=== PATIENT | female | born 1980 | race Hispanic/Latino ===

== ENCOUNTER → 2017-08-11 | Outpatient (CLI) | payer OTHER ==
--- NOTE | 2017-08-11 11:27 | Diagnostic Imaging Report ---
PROCEDURE:ABDOMINAL ULTRASOUND COMPARISON:None. INDICATIONS: ABNORMAL RESULTS OF LIVER FUNCTION TEST TECHNIQUE: Transverse and longitudinal images of the upper abdomen were obtained. FINDINGS: Liver: Size: 17.6 cm in the right midclavicular line, mildly enlarged Appearance: Mildly increased echogenicity, smooth contour Mass: No focal masses Spleen: Size: 10.0 cm in length, normal Echogenicity: Normal Mass: No focal masses Gallbladder: Stones/Sludge: None Appearance: No wall thickening, or hydrops. An anechoic area posterior to the gallbladder represent trace volume pericholecystic fluid. Sonographic Lan's Sign: Negative Bile Ducts: Intrahepatic Ducts: No dilatation Extrahepatic Ducts: Common bile duct measures 0.8 cm, no dilatation Pancreas: Not visualized due to shadowing from overlying bowel gas. Right Kidney: Size: 12.8 cm Echogenicity: Normal Collecting System: No hydronephrosis Stone: None Cyst/Mass: None Left Kidney: Size: 12.2 cm Echogenicity: Normal Collecting System: No hydronephrosis Stone: None Cyst/Mass: None Vessels: Aorta: Visualized portions are normal Inferior Vena Cava: Visualized portions and normal Main Portal Vein: 1.0 cm, normal size with hepatopetal flow. Free Fluid: No ascites or pleural effusions IMPRESSION: Mild hepatomegaly and hepatic steatosis. Opal Alves M.D. Dictated by: Opal Alves M.D. on 08/11/2017 at 11:31 Electronically approved by: Opal Alves M.D. on 08/11/2017 at 11:31
--- NOTE | 2017-08-11 14:11 | Diagnostic Imaging Report ---
PROCEDURE:C-SPINE COMPLETE COMPARISON:None. INDICATIONS:CERVICALGIA FINDINGS: The lateral view is visualized from the skull base to C7. Mild straightening of the normal cervical lordosis is either related to muscle spasm or positioning. The vertebral bodies are well-aligned. There are no fractures, lytic or blastic lesions. No evidence of neuroforaminal narrowing. The disc-space heights are well-maintained. The C1/C2-odontoid interval is normal. The pre-vertebral soft tissues are normal. CONCLUSION: Mild straightening of the normal cervical lordosis is either related to muscle spasm or positioning. No acute osseous abnormality. Opal Alves M.D. Dictated by: Opal Alves M.D. on 08/11/2017 at 14:15 Electronically approved by: Opal Alves M.D. on 08/11/2017 at 14:15
--- NOTE | 2017-08-15 08:29 | Diagnostic Imaging Report ---
#[id number] - USBRECOMRT ULTRASOUND OF THE RIGHT BREAST : 08/11/2017 CLINICAL: FREQUENT DIFFUSE RT BREAST PAIN THAT SOMETIMES LASTS FOR DAYS. No prior exams were available for comparison. Color flow and real-time ultrasound were performed on the entire right breast with scanning in all four quadrants, retroareolar region and right axilla. There are prominent ductal pattern without evidence of a cystic or solid mass. IMPRESSION: BENIGN There is no sonographic evidence of malignancy. A 3 year screening mammogram is recommended. Arash Boudreaux Jr., D.O. cw/:08/11/2017 13:25:06 [employer] Bonder: CAR SYED, [facility] letter sent: Normal Exam Ultrasound BI-RADS: 2 Benign
== END | disposition home or self-care (01) ==
LOC: US 09:56
PROVIDERS: ATTEND Internal Medicine
DX: R94.5 Abnormal results of liver function studies (principal); D24.1 Benign neoplasm of right breast; M54.2 Cervicalgia; R16.0 Hepatomegaly, not elsewhere classified; K76.0 Fatty (change of) liver, not elsewhere classified
CPT/HCPCS: 72050; 76700